=== PATIENT | male | born 1940 | race Caucasian/White ===

== ENCOUNTER → 2023-05-22 09:47 | Outpatient (CLI) | payer OTHER, SELFPAY ==
[2023-05-25 07:36] LABS: PSA Free % 26.9 % (.); PSA, Total 4.2 ng/mL (0.0-4.0)
== END ==
LOC: LAB 09:48
PROVIDERS: PCP Physician Assistant; Referring Provider Specialist; Visit Provider Specialist
DX: N40.0 Benign prostatic hyperplasia without lower urinary tract symptoms (principal); R97.20 Elevated prostate specific antigen [PSA]
CPT/HCPCS: 36415; 84153; 84154

== ENCOUNTER → 2024-04-09 11:47 | Outpatient (CLI) | payer MEDICARE, SELFPAY ==
[2024-04-09 12:47] LABS: BUN Creatinine Ratio 19.6 (6-22); Blood Urea Nitrogen 31 mg/dL (9-20); Calcium 9.3 mg/dL (8.4-10.2); Carbon Dioxide 19 mmol/L (22-32); Chloride 106 mmol/L (98-107); Estimated Glomerular Filt Rate 44 mL/min (>60); Glucose 259 mg/dL (80-110); HEMOLYSIS < 15 (0-50); Sodium 135 mmol/L (137-145)
[2024-04-09 14:03] LABS: Protein (Total) Urine Random 25 mg/dL (0-12); Protein Creatinine Ratio Urine 0.24 GRAM/24H
[2024-04-10 07:39] LABS: Parathyroid Hormone Int 48 pg/mL (15-65)
== END ==
PROVIDERS: PCP Physician Assistant; Referring Provider Student in an Organized Health Care Education/Training Program; Visit Provider Student in an Organized Health Care Education/Training Program
DX: N05.9 Unspecified nephritic syndrome with unspecified morphologic changes (principal); N25.81 Secondary hyperparathyroidism of renal origin; R80.9 Proteinuria, unspecified
CPT/HCPCS: 36415; 80048; 82570; 83970; 84156

== ENCOUNTER → 2024-06-02 12:40 | Outpatient (CLI) | payer MEDICARE, SELFPAY ==
[2024-06-02 14:04] LABS: Prostate Specific Antigen 4.45 ng/mL (0.10-4.00)
== END ==
PROVIDERS: PCP Physician Assistant; Referring Provider Urology; Visit Provider Urology
DX: N40.0 Benign prostatic hyperplasia without lower urinary tract symptoms (principal); R97.20 Elevated prostate specific antigen [PSA]
CPT/HCPCS: 36415; 84153

== ENCOUNTER → 2024-07-13 11:23 | Outpatient (CLI) | payer MEDICARE, SELFPAY ==
[2024-07-13 12:35] LABS: Hematocrit 41.4 % (41-53); Hemoglobin 13.8 g/dL (13.5-17.5)
[2024-07-13 12:40] LABS: BUN Creatinine Ratio 16.8 (6-22); Blood Urea Nitrogen 30 mg/dL (9-20); Carbon Dioxide 22 mmol/L (22-32); Chloride 110 mmol/L (98-107); Estimated Glomerular Filt Rate 38 mL/min (>60); Glucose 132 mg/dL (70-99); HEMOLYSIS < 15 (0-50); Sodium 141 mmol/L (137-145)
[2024-07-13 12:41] LABS: Potassium 5.8 mmol/L (3.4-5.1)
== END ==
PROVIDERS: PCP Physician Assistant; Referring Provider Student in an Organized Health Care Education/Training Program; Visit Provider Student in an Organized Health Care Education/Training Program
DX: N05.9 Unspecified nephritic syndrome with unspecified morphologic changes (principal); R80.9 Proteinuria, unspecified; D70.9 Neutropenia, unspecified; D63.1 Anemia in chronic kidney disease
CPT/HCPCS: 36415; 80048; 85014; 85018

== ENCOUNTER → 2024-08-27 14:48 | Outpatient (CLI) | payer OTHER, SELFPAY ==
--- NOTE | 2024-08-27 14:50 | DI.US.S_ITS ---
PROCEDURE: US RENAL COMPLETE INDICATIONS: stage 3a chronic kidney disease TECHNIQUE: Real-time scanning was performed of the kidneys and bladder, with image documentation. COMPARISON: None. FINDINGS: Kidneys: Kidneys are normal in size. Right kidney measures 12.5 cm long; left kidney measures 12.8 cm long. Right renal cortical thickness is 1.7 cm; left renal cortical thickness is 1.7 cm. Renal cortical echotexture is increased bilaterally. No hydronephrosis or nephrolithiasis. No suspicious solid mass lesions. There are multiple cysts in the bilateral kidneys. Largest is seen in the superior pole the right kidney measuring 4.9 x 4.7 x 4.3 cm. Largest on the left measures 4.8 x 5.0 x 5.1 cm. Bladder: Pre-void bladder volume is 189 mL. Post-void residual is 128 mL. Pre-void images demonstrate no intraluminal masses or stones. On pre-void images, bilateral ureteral jets were not visualized with color Doppler interrogation. (Of note, ureteral jets may not be detectable in up to 25% of cases due to insufficient differences in specific gravity between ureteral and bladder urine). Miscellaneous: No free pelvic fluid. IMPRESSION: 1. Bilateral kidneys without evidence for obstructive uropathy or urolithiasis. Increased bilateral renal echotexture consistent with sequela of chronic medical renal disease. 2. Multiple bilateral renal cysts. Dictated by: Mariano Abdi M.D. on 08/27/2024 at 17:54 Approved by: Mariano Abdi M.D. on 08/27/2024 at 17:56
== END ==
PROVIDERS: PCP Physician Assistant; Referring Provider Student in an Organized Health Care Education/Training Program; Visit Provider Student in an Organized Health Care Education/Training Program
DX: N18.31 Chronic kidney disease, stage 3a (principal); N28.1 Cyst of kidney, acquired
CPT/HCPCS: 76770

== ENCOUNTER → 2024-09-23 09:25 | Outpatient (CLI) | payer OTHER, SELFPAY ==
[2024-09-23 10:08] LABS: Hematocrit 40.4 % (41-53); Hemoglobin 13.8 g/dL (13.5-17.5)
[2024-09-23 10:31] LABS: Blood Urea Nitrogen 21 mg/dL (9-20); Calcium 9.1 mg/dL (8.4-10.2); Carbon Dioxide 21 mmol/L (22-32); Chloride 111 mmol/L (98-107); Estimated Glomerular Filt Rate 49 mL/min (>60); Glucose 69 mg/dL (70-99); HEMOLYSIS < 15 (0-50); Potassium 4.4 mmol/L (3.4-5.1); Sodium 141 mmol/L (137-145)
[2024-09-23 11:37] LABS: Protein (Total) Urine Random 37 mg/dL (0-12); Protein Creatinine Ratio Urine 0.45 GRAM/24H
== END ==
PROVIDERS: PCP Physician Assistant; Referring Provider Student in an Organized Health Care Education/Training Program; Visit Provider Student in an Organized Health Care Education/Training Program
DX: D70.9 Neutropenia, unspecified (principal); N05.9 Unspecified nephritic syndrome with unspecified morphologic changes; R80.9 Proteinuria, unspecified; D63.1 Anemia in chronic kidney disease
CPT/HCPCS: 36415; 80048; 82570; 84156; 85014; 85018